=== PATIENT | male | born 1990 | race Caucasian/White ===

== ENCOUNTER 2018-07-02 08:41 | Day surgery (SDC) | payer MEDICARE, MEDICAID ==
--- NOTE | 2018-07-02 06:32 | History and Physical - Ferro ---
CHIEF COMPLAINT/HISTORY OF CHIEF COMPLAINT: This patient who is a paraplegic presents today for an implanted spinal catheter infusion trial with Hydromorphone to determine if the implantation of a permanent system can be of any value in pain control. PAST MEDICAL HISTORY: Paraplegia. PAST SURGICAL HISTORY: Spinal surgery. MEDICATIONS ON ADMISSION: List to be provided. FAMILY/PSYCHOSOCIAL HISTORY: Family history - Noncontributory. SYSTEMS REVIEW: The patient seems appropriate, wheelchair bound. No lower extremity functionality. PHYSICAL EXAMINATION: Height is 5'11", weight is 170. No vital signs. HEENT: Within normal limits. LUNGS: Clear. HEART: Rapid and regular. ABDOMEN: Nontender. MUSCULOSKELETAL: Examination of the musculoskeletal system shows the primary region of pain to be mid to low thoracic and moving circumferentially approximating the levels of T8 through T12. Suggestion indications of previous surgery indicated as hardware placement and then subsequent removal. Lower extremity functionality - He is paralyzed and is wheelchair restricted. NEUROLOGIC: Cranial nerves are intact. IMPRESSION: 1. 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 2. PARAPLEGIA. PLAN: The patient is here for implanted catheter infusion trial with Hydromorphone to determine if the implantation of a permanent system can be of any value in pain control. The procedure will be considered outpatient, although an overnight stay will be evaluated. An epidural blood patchy will be performed in an effort to prevent the spinal headache, this will require him to be flat for four and slowly elevated for one. The potential risks, side effects and complications have all been reviewed and discussed. JOB [facility]BER: [id number] [facility]
[~2018-07-02 08:41] MED LIST: ACETAMINOPHEN 1,000 MG/100 ML BTL IV ONE; FAMOTIDINE 20MG TABLET PO ONE; HYDROMORPHONE PF 2MG/ML AMP 0.008 MG in 0.9 % SODIUM CHLORIDE 10ML VIA 0.996 ML IV ONE; HYDROMORPHONE PF 2MG/ML AMP 8 MG in 0.9 % SODIUM CHLORIDE 500ML 496 ML IV ONE; MECLIZINE 25 MG TABLET PO ONE; METOCLOPRAMIDE 10 MG TABLET PO ONE
[2018-07-02] MEDS ORDERED: LIDOCAINE 2% MDV (20MG/ML) 20ML VIAL IV ONE (08:42)
[2018-07-02] MEDS ORDERED: FENTANYL PF 100MCG/2ML VIAL IV ONE (08:42)
[2018-07-02] MEDS ORDERED: BUPIVACAINE 0.5% W/EPI MPF 30 ML VIAL IVP ONE (08:42)
[2018-07-02] MEDS ORDERED: PROPOFOL 10 MG/ML VIAL IV ONE (08:42)
[2018-07-02] MEDS ORDERED: CEFAZOLIN 1G VIAL IM ONE (08:42)
[2018-07-02] MEDS ORDERED: CEFAZOLIN 2 Gram 2 GM/50 ML BAG IVPB ONE (08:42)
[2018-07-02] MEDS ORDERED: LIDOCAINE 1% W/EPI 1:200,000 MPF 30ML SQ ONE (08:42)
[2018-07-02] MEDS ORDERED: 0.9 % SODIUM CHLORIDE 10 ML VIAL IVP ONE (08:42)
[2018-07-02] MEDS ORDERED: MIDAZOLAM HCL 2MG/2ML VIAL IV ONE (08:42)
[2018-07-02] MEDS ORDERED: ACETAMINOPHEN 325 MG TAB PO PRN ×2 (12:35)
[2018-07-02] MEDS ORDERED: METOCLOPRAMIDE 10 MG TABLET PO PRN (12:35)
[2018-07-02] MEDS ORDERED: AL HYDROX/MAG HYDROX 30ML UD PO PRN (12:35)
[2018-07-02] MEDS ORDERED: DIPHENHYDRAMINE HCL 25 MG CAPSULE PO PRN ×2 (12:35)
[2018-07-02] MEDS ORDERED: HYDROMORPHONE HCL 2 MG/ML VIAL IM PRN ×2 (12:35)
[2018-07-02] MEDS ORDERED: NALOXONE 0.4 MG/1 ML VIAL IVP PRN (12:35)
[2018-07-02] MEDS ORDERED: SENNOSIDES/DOCUSATE SODIUM UD CAPSULE PO PRN ×2 (12:35)
[2018-07-02] MEDS ORDERED: HYDROCODONE/APAP 7.5/325MG TABLET PO PRN ×2 (12:35)
[2018-07-02] MEDS ORDERED: DIPHENHYDRAMINE HCL 50 MG/ML VIAL IVP PRN ×2 (12:35)
[2018-07-02] MEDS ORDERED: OXYCODONE/APAP 10MG-325MG TABLET PO PRN ×2 (12:35)
[2018-07-02] MEDS ORDERED: METOCLOPRAMIDE HCL 10 MG/2 ML VIAL IVP PRN (12:35)
[2018-07-02] MEDS ORDERED: TEMAZEPAM 15 MG CAPSULE PO PRN ×2 (12:35)
[2018-07-02] MEDS ORDERED: TIZANIDINE HCL 4 MG TABLET PO SCH (16:00)
[2018-07-02] MEDS ORDERED: CEFAZOLIN 2 Gram 2 GM/50 ML BAG IVPB SCH (18:00)
[2018-07-02] MEDS ORDERED: PREGABALIN (LYRICA) 100MG CAPSULE PO SCH (22:00)
--- NOTE | 2018-07-04 05:42 | Operative Note ---
DATE: 07/02/2018. PREOPERATIVE DIAGNOSIS: 1. POSTLAMINECTOMY SYNDROME, ICD-10 CODE M96.1. 2. THORACIC AND LUMBAR RADICULOPATHY, ICD-10 CODE M54.14 AND M54.16. PROCEDURES: 1. Fluoroscopically guided epidural access at L3-4. Placement of thin-walled spinal catheter at T8-9. 2. Diagnostic myelography with radiologic supervision and interpretation. 3. Bolus of hydromorphone 0.004 mg into the spinal space. 4. Incision, subcutaneous dissection, and anchoring of spinal catheter to supraspinous fascia with anchoring device and nonabsorbable suture. 5. Incision, subcutaneous dissection, and creation of subcutaneous pouch at right flank. 6. Tunneling of spinal catheter to right flank pouch. Interface catheter to secondary catheter component via connector. Tunneling second catheter component 6.0 cm superior exiting the skin. 7. Interface external catheter to external pump set to deliver hydromorphone at 0.08 mg per day. 8. Closure of incisions with Vicryl for the fascia and running nylon for the skin. 9. Epidural blood patch at L4-5 with 20 mL of autologous blood with sterile technique from the left antecubital. 10. Dressings placed securing catheter and all connections and incisions under sterile dressing. 11. Patient transported to the recovery room stable and flat with a pillow under the head and knees, showing no atypical pain patterns and no unusual pain complaints. SURGEON: Tiago Crisostomo D.O. ANESTHESIA: Local sedation. ANESTHESIA PROVIDER: Chris Maloney CRNA INDICATIONS: This patient presents with a history of an intractable postlaminectomy radiculopathy with paraplegia. He has had decompression laminectomy, placement of hardware, and removal of hardware at T8, 9, and 10. Due to the failure of therapy including a spinal cord stimulator trial, the patient is here for a spinal opioid infusion trial with hydromorphone to determine if the implantation of a permanent system can be of any value in pain control. DESCRIPTION OF PROCEDURE: Intravenous lines, vital sign monitoring, and intravenous sedation. Prepped and draped with sterile technique with the patient positioned prone. The spinal interspace at L3-4 was marked and infiltrated. A 20-gauge spinal needle was inserted into the spinal space using AP and lateral imaging. With cerebrospinal fluid flow, a thin-walled spinal catheter was positioned and placed at the upper endplate at T9. Diagnostic myelogram was performed with radiologic supervision and interpretation. Appropriate flow characteristics were noted. A spinal opioid bolus of hydromorphone 0.004 mg was given in the spinal space. The skin above and below the needle was infiltrated. An incision was made and subcutaneous dissection was conducted to the supraspinous fascia. The needle was removed, and then the catheter was anchored to the supraspinous fascia with an anchoring device and nonabsorbable suture. At the right flank, the site picked ultimately for the pump, the skin was infiltrated. An incision was made and subcutaneous dissection was conducted to form a small pouch. The spinal catheter was tunneled into the flank pouch and interfaced with the second catheter component which was tunneled 6.0 cm superior exiting the skin. The external catheter was then interfaced to an external pump which was set to deliver hydromorphone at 0.08 mg a day. The midline incision was closed with Vicryl for the fascia and a running nylon for the skin. The flank pouch incision was closed with nylon suture. At L4-5, one level below the dural puncture, the skin was infiltrated. An 18- gauge Tuohy needle was placed with loss of resistance into the epidural space. Simultaneously 20 mL of autologous blood was drawn with sterile technique. The blood was placed onto the field maintaining sterility, and then an epidural blood patch was performed at this level with this blood. Sterile dressings were applied securing the catheter and all connections and incisions under sterile dressing. He was transported to the recovery room stable and flat with a pillow under the head and knees. He will be kept flat for four hours and then will be slowly elevated for one hour. There was no unusual pain pattern and no unusual complaints of pain. Full functionality of the extremities was noted taking into consideration the paraplegia. The patient will be kept overnight for observation and will be discharged in the morning. DISCHARGE INSTRUCTIONS: 1. The sites are to remain clean and dry. No showering or bathing in any way that would disrupt dressings. If this happens, contact the clinic. 2. Standard medications to be resumed including the antibiotic Levaquin 500 mg once a day for 14 days. 3. Spinal opioid side effects including respiratory depression, nausea, vomiting, constipation, urinary retention, lightheadedness, and rash have all been discussed and reviewed. If he experiences any of these side effects he is to contact the clinic or go to a local emergency room. 4. All other instructions were provided including numbers to contact with problems. 5. He will be seen in the office within the next three to five days for the first of three increases. JOB NUMBER: [id number] [facility]
--- NOTE | 2018-07-04 23:12 | RADIOLOGY REPORT ---
EXAM: SPINE, 1 VIEW HISTORY: PAIN PUMP TRIAL. TECHNIQUE: Single frontal view of the thoracolumbar spine. COMPARISON: Procedural fluoroscopy 07/02/2018. FINDINGS: A thin catheter superimposes the lower thoracic spine and right hemiabdomen. A 20 mm metallic linear structure superimposes the right hemiabdomen. Please see procedural report for additional details. IMPRESSION: ABOVE. JOB NUMBER: [id number] [facility]
== END 2018-07-02 17:05 | disposition home or self-care (01) ==
LOC: SUR 08:41 → MEDSURG 11:38 → SUR 17:05
PROVIDERS: ATTEND Pain Medicine Interventional Pain Medicine
DX: M96.1 Postlaminectomy syndrome, not elsewhere classified (principal); M54.14 Radiculopathy, thoracic region; M54.16 Radiculopathy, lumbar region; G90.4 Autonomic dysreflexia; G82.20 Paraplegia, unspecified
CPT/HCPCS: 72020; J0690; J1170; J7040

== ENCOUNTER 2018-07-16 12:46 | Day surgery (SDC) | payer MEDICARE, MEDICAID ==
--- NOTE | 2018-07-16 07:40 | History and Physical - Ferro ---
CHIEF COMPLAINT/HISTORY OF CHIEF COMPLAINT: This patient presents with a history of a post laminectomy radiculopathy with paraplegia and an implanted spinal catheter infusion trial using Hydromorphone. The trial period has had three increases which he feels does not appreciable help his pain. He is here for removal of the device. PAST MEDICAL HISTORY: Unchanged. PAST SURGICAL HISTORY: Unchanged. MEDICATIONS ON ADMISSION: List to be provided. FAMILY/PSYCHOSOCIAL HISTORY: Social history - Unchanged. Family history - Unchanged. SYSTEMS REVIEW: The patient is appropriate in no acute distress. PHYSICAL EXAMINATION: Height is 5'11", weight is 170. No vital sign changes. Current examination shows the implanted catheter trial dressings were in place. External pump is in place and it has been reduced to its starting point. NEUROLOGIC: Cranial nerves are intact. IMPRESSION: 1. POST LUMBAR LAMINECTOMY SYNDROME, ICD-10 CODE M96.1 WITH RADICULOPATHY, ICD- 10 CODE M54.14 AND PARAPLEGIA. 2. IMPLANTED SPINAL CATHETER INFUSION TRIAL WITH HYDROMORPHONE. PLAN: This has been an unsuccessful trial. We are removing the implanted catheter on an outpatient basis. [facility]BER: [id number] [facility]
[~2018-07-16 12:46] MED LIST changes: +CEFAZOLIN 2 Gram 2 GM/50 ML BAG IVPB ONE; -HYDROMORPHONE PF 2MG/ML AMP 0.008 MG in 0.9 % SODIUM CHLORIDE 10ML VIA 0.996 ML IV ONE; -HYDROMORPHONE PF 2MG/ML AMP 8 MG in 0.9 % SODIUM CHLORIDE 500ML 496 ML IV ONE
[2018-07-16] MEDS ORDERED: MIDAZOLAM HCL 2MG/2ML VIAL IV ONE (12:47)
[2018-07-16] MEDS ORDERED: FENTANYL PF 100MCG/2ML VIAL IV ONE (12:47)
[2018-07-16] MEDS ORDERED: PROPOFOL 10 MG/ML VIAL IV ONE (12:47)
[2018-07-16] MEDS ORDERED: 0.9 % SODIUM CHLORIDE 10 ML VIAL IVP ONE (12:47)
[2018-07-16] MEDS ORDERED: CEFAZOLIN 1G VIAL IM ONE (12:47)
[2018-07-16] MEDS ORDERED: LIDOCAINE 2% MDV (20MG/ML) 20ML VIAL IV ONE (12:47)
--- NOTE | 2018-07-16 22:26 | Operative Note ---
DATE OF SURGERY: 07/16/2018. PREOPERATIVE DIAGNOSES: 1. POST LUMBAR LAMINECTOMY SYNDROME, ICD-10 CODE = M96.1 WITH RADICULOPATHY, ICD-10 CODE = M54.16 AND M54.17. 2. IMPLANTED SPINAL CATHETER TRIAL INFUSION HYDROMORPHONE UNSUCCESSFUL. SURGERY: FLUOROSCOPIC-GUIDED INCISION, SUBCUTANEOUS DISSECTION AND REMOVAL OF IMPLANTED CATHETER. SURGEON: YFN GARCIA D.O. ANESTHESIA: LOCAL SEDATION. ANESTHESIA PROVIDER: TYRESE. INDICATIONS: This patient presents with a history of an intractable post laminectomy radiculopathy with paraplegia. A spinal infusion trial of Hydromorphone was conducted and unsuccessful. He is here for removal of the catheter. SURGERY: Intravenous line, vital sign monitoring, IV sedation, prepped and draped sterile technique. The incisional line for the implanted catheter infiltrated, incision made, and subcutaneous dissection was conducted down to the anchor. The suture was cut and the anchor removed intact. A pursestring suture was placed as the spinal catheter was removed from the spinal space, stopping CSF leak. At the right flank, the previous site for the implanted catheter interface between internal and external catheters infiltrated, incision made, and subcutaneous dissection was conducted to the connector. The connector was cut and the external catheter removed by pulling away from the incision. Antibiotic irrigation and Bovie for hemostasis. STRATAFIX suture #2-0 fascia, #3-0 skin. Dermabond closure. He was transported to the Recovery Room stable. He will be monitored and then discharged. DISCHARGE INSTRUCTIONS: 1. Sites are to remain clean and dry. Although the Dermabond will allow showering, he should not sit in water. 2. Standard medications can be resumed. He will continue his antibiotic Levaquin 500 mg once a day for another 7 days. 3. He will be seen in the office in 7 to 10 days to evaluate the sites. Until then, activities should stay controlled. cc: Primary [facility]: [id number] [facility]
== END 2018-07-16 16:30 | disposition home or self-care (01) ==
LOC: SUR 12:46
PROVIDERS: ATTEND Pain Medicine Interventional Pain Medicine
DX: M96.1 Postlaminectomy syndrome, not elsewhere classified (principal); M54.16 Radiculopathy, lumbar region; M54.17 Radiculopathy, lumbosacral region; I10 Essential (primary) hypertension; G82.20 Paraplegia, unspecified; G90.4 Autonomic dysreflexia
CPT/HCPCS: 62355; 00300; J3010; J0690